=== PATIENT | female | born 1970 | race Caucasian/White ===

== ENCOUNTER 2024-08-26 05:38 | Emergency (ER) | payer OTHER ==
--- OUTSIDE RECORDS SUMMARY | 2024-08-26 05:42 | XMS REPORT | Continuity of Care Document ---
Author Name Unknown Address [address] [facility] [address] [place] [address] [facility] thconnect Address [address] [place] [address] Care Team Providers Care Aerial Sprayer Name Role Phone Jania Bower Primary Care Physician Genie Pandey Attending Clinician Unavail BERTHA Christian Attending Clinician Un available Elizabeth Epstein Attending Clinician Unav Bright Palmer Attending Clinician Unavailable JASON CEE Attending Clinician Unavailable Sam Li Attending Clinician Unavailab Elizabeth Francois Attending Clinician Unavailable Elizabeth Epstein Attending Clinician Unavailable ELIZABETH EPSTEIN Attending Clinician Unavailable Sam Li Attending Clinician Unavailable Charles ISBELL Helena Gabo Attending Clinician [phone] [email or web address] Attending Clinician Unavailyas Perez Attending Clinician Unavail able TAURUS VALDEZ Attending Clinician Unavailable Samuel Quinones Attending Clinician Unavailable Stalin Mckeon Attending Clinician Unavail able MARISEL Attending Clinician Unavailable Jr Springer Attending Clinician UnavailMICHAEL Gregory Attending Clinician Unavailable LITTLE RODRIGUEZ Attending Clinician UnavailSAIRA Zuleta Attending Clinician Unavaila BERTHA Koroma Admitting Clinician Un available Elizabeth Epstein Admitting Clinician Unavailable Sam Li Admitting Clinician Unavailable [id number] Admitting Clinician Unavaila mohit Perez Admitting Clinician Unavail able TAURUS VALDEZ Admitting Clinician Unavailable MARISEL Admitting Clinician Unavailable Payers Payer Name Policy Type Policy Number Effective Date Expirati on Date Source 2 M [id number] [facility] CHOICE (MEDICARE REPLACEMENT HMO) [id number] [facility] MEDICARE COMPLETE (MEDICARE REPLACEMENT HMO) [id number] 2 [id number] [employer] (MEDICARE REPLACEMENT/ADVANTA GE - PPO) [id number] [employer] CHOICE [id number] 2019 00:00:00 Problems Condition Name Condition Details Condition Category Status Onset Date Resolution Date Last Treatment Date Treating Clinician Comments Source Abnormal cervical Papanicola ou smear Abnormal Cervical Papanicola ou Smear Problem Active 01-04 00:00: 00 [facility] Human papillomav irus deoxyribon ucleic acid detected, high risk on cervical specimen Human Papillomav irus Deoxyribon ucleic Acid Detected, High Risk on Cervical Specimen Problem Active 01-04 00:00: 00 [facility] Herpes simplex Herpes Simplex Problem Active 12-13 00:00: 00 [facility] Anxiety Anxiety Problem Active 12-13 00:00: 00 [facility] Depressive disorder Depressive Disorder Problem Active 12-13 00:00: 00 [facility] Migraine Migraine Problem Active 12-13 00:00: 00 [facility] Migraine Problem Active 03-19 00:00: 00 [facility] Environmen maryam allergy Environmen maryam Allergy Problem Active 03-19 00:00: 00 [facility] Allergies, Adverse Reactions, Alerts Allergy Name Allergy Type Status Severity Reaction(s) Onset Date Inactive Date Treating Clinician Comments Source No Known Allergie s NA Active 09-20 07:38: [facility] No Known Allergie s NA Active 09-20 07:38: 43 [facility] No Known Allergie s NA Active 09-07 15:27: 09 [facility] No Known Allergie s NA Active 09-07 15:26: 56 [facility] No Known Allergie s NA Active 09-07 15:23: 45 [facility] No Known Allergie s NA Active 2021-08 00:28: 51 [facility] No Known Allergie s NA Active 2021-08 00:18: 31 [facility] No Known Allergie s NA Active 2021-08 21:00: 35 [facility] No Known Allergie s NA Active 2021-08 20:32: 06 [facility] Penicill ins DA Active U Rash 2021-08 0-18 00:00: 00 [facility] Penicill ins DA Active U Rash 2021-08 0-17 00:00: 00 [facility] Penicill ins DA Active U Rash 8-08 00:00: 00 [facility] Penicill ins DA Active U Rash - 00:00: 00 [facility] PENICILL IN DRUG INGREDI Active Rash 2-24 00:00: 00 [facility] Penicill in Propensi ty to adverse reaction s Active Rash 2- 00:00: 00 [facility] PENICILL INS Allergy to substanc e Active Rash [facility] penicill in Drug Active rash [facility] penicill in Drug Active rash Medical [facility] penicill in Drug Active rash [facility] penicill in Drug Active rash [facility] penicill in Drug Active rash [facility] penicill in Drug Active rash [facility] penicill in Drug Active rash [facility] penicill in Drug Active rash [facility] penicill in Drug Active rash [facility] penicill in Drug Active rash [facility] penicill in Drug Active rash [facility] penicill in Drug Active rash [facility] penicill in Drug Active rash [facility] penicill in Drug Active rash [facility] penicill in Drug Active rash [facility] Social History Social Habit Start Date Stop Date Quantity Comments Source Sexual orientation [facility] Sex assigned at 1970 00:00:00 1970 00:00:00 [facility] Smoking Status Start Date Stop Date Source Tobacco smoking consumption unknown [facility] Never Smoker [facility] Medications Ordered Medication Name Filled Medication Name Start Date Stop Date Current Medication? Ordering Clinician Indication Dosage Frequency Signature (SIG) Comments Components Source ondansetron (ZOFRAN (PF)) injection 4 mg 01-28 06:00: 00 01-28 05:53 :00 No 4mg 4 mg, Slow IV Push, ONCE, 1 dose, On 01/29/24 at 0100, JULITA [facility] ketorolac (TORADOL) injection 30 mg 01-28 05:00: 00 01-28 04:16 :00 No 30mg 30 mg, Slow IV Push, ONCE, 1 dose, On 01/29/24 at 0000, Routine [facility] NaCl 0.9% (NS) bolus infusion 1,000 mL 01-28 04:30: 00 01-28 04:15 :00 No 1000mL at 999 mL/hr, 1,000 mL, IV Infusion, ONCE, 1 dose, [facility] 01/28[facility]24 [facility] 2330[facility] dex[facility] sod phos PF [facility] 10 mg 01-28 04:15: 00 01-28 04:17 :00 No 10mg 10 mg, Oral, ONCE, 1 dose, On 01/28/24 at 2315, 1 mL [facility] diphenhydrA MINE (BENADRYL) injection 25 mg 01-28 04:15: 00 01-28 04:16 :00 No 25mg 25 mg, Slow IV Push, ONCE, 1 dose, On 01/28/24 at 2315, STAT [facility] ondansetron (ZOFRAN-ODT ) disintegrat ing tablet 4 mg 01-28 04:00: 00 01-28 03:26 :00 No 4mg 4 mg, Oral, ONCE, 1 dose, On 01/28/24 at 2300, Routine [facility] metoclopram sivan HCl (REGLAN) injection 10 mg 01-28 03:45: 00 01-28 04:17 :00 No 10mg 10 mg, Slow IV Push, ONCE, 1 dose, On 01/28/24 at 2245, [facility] SUMAtriptan (IMITREX) injection 6 mg 01-28 03:15: 00 01-28 03:26 :00 No 6mg 6 mg, Subcutaneo us, ONCE, 1 dose, On 01/28/24 at 2215, [facility] ondansetron ODT 4 MG TBDP ondansetron ODT 4 MG TBDP 2021-08 21:19: 00 07-10 21:19 :00 No 4mg medication :ondansetr on ODT 4 MG TBDP|dose: 4.0 mg|route:O RAL|freque ncy:ONE TIME [facility] ([facility]) fentaNYL INJ 50 MCG/ 1ML SOSY fentaNYL INJ 50 MCG/ 1ML SOSY 2021-08 21:19: 00 07-10 21:19 :00 No 50ug medication :fentaNYL INJ 50 MCG/ 1ML SOSY|dose: 50.0 ug|route:I NTRAVENOUS |frequency :ONE TIME [facility] ([facility] Ondansetron Hcl (Zofran Odt) 4 Mg ODT 03-28 04:58: 00 No 4mg Every 4 Hours [facility] Hydroxyzine Hcl (Atarax) 25 Mg TAB 02-28 18:33: 00 No 25mg Three Times A Day as needed for Itching [facility] Hydroxyzine Hcl (Atarax) 25 Mg TAB 02-28 18:33: 00 No 25mg Three Times A Day as needed for Itching [facility] Hydroxyzine Hcl (Atarax) 25 Mg TAB 02-28 18:33: 00 03-28 00:00 :00 No 25mg Three Times A Day as needed for Itching [facility] Cam Walking Boot 02-28 18:32: 00 No 1 As Directed for Ankle Fracture [facility] Cam Walking Boot 02-28 18:32: 00 No 1 As Directed for Ankle Fracture [facility] Cam Walking Boot 02-28 18:32: 00 03-28 00:00 :00 No 1 As Directed for Ankle Fracture [facility] valacyclovi r 500 mg tablet TAKE 1 TABLET BY MOUTH DAILY valacyclovi r 500 mg tablet TAKE 1 TABLET BY MOUTH DAILY No valacyclov ir 500 mg tablet TAKE 1 TABLET BY MOUTH DAILY [facility] venlafaxine 50 mg tablet TAKE 1 TABLET BY MOUTH DAILY WITH FOOD venlafaxine 50 mg tablet TAKE 1 TABLET BY MOUTH DAILY WITH FOOD No venlafaxin e 50 mg tablet TAKE 1 TABLET BY MOUTH DAILY WITH FOOD [facility] [place] Thyroid 30 mg tablet TAKE 1 TABLET BY MOUTH DAILY ON AN EMPTY STOMACH [place] Thyroid 30 mg tablet TAKE 1 TABLET BY MOUTH DAILY ON AN EMPTY STOMACH No [place] Thyroid 30 mg tablet TAKE 1 TABLET BY MOUTH DAILY ON AN EMPTY STOMACH [facility] cetirizine 10 mg tablet TAKE 1 TABLET BY MOUTH EVERY 8 HOURS NEEDED FOR ITCHING FOR 15 DAYS cetirizine 10 mg tablet TAKE 1 TABLET BY MOUTH EVERY 8 HOURS NEEDED FOR ITCHING FOR 15 DAYS No cetirizine 10 mg tablet TAKE 1 TABLET BY MOUTH EVERY 8 HOURS NEEDED FOR ITCHING FOR 15 DAYS [facility] methylpredn isolone 4 mg tablets in a dose pack FOLLOW PACKAGE DIRECTIONS methylpredn isolone 4 mg tablets in a dose pack FOLLOW PACKAGE DIRECTIONS No methylpred nisolone 4 mg tablets in a dose pack FOLLOW PACKAGE DIRECTIONS [facility] mupirocin 2 % topical ointment APPLY TOPICALLY TO THE AFFECTED AREA TWICE DAILY mupirocin 2 % topical ointment APPLY TOPICALLY TO THE AFFECTED AREA TWICE DAILY No mupirocin 2 % topical ointment APPLY TOPICALLY TO THE AFFECTED AREA TWICE DAILY [facility] pantoprazol e 40 mg tablet,robinson yed release TAKE 1 TABLET BY MOUTH EVERY DAY 30 MINUTES BEFORE BREAKFAST OR FIRST MEAL. pantoprazol e 40 mg tablet,robinson yed release TAKE 1 TABLET BY MOUTH EVERY DAY 30 MINUTES BEFORE BREAKFAST OR FIRST MEAL. No pantoprazo le 40 mg tablet,del ayed release TAKE 1 TABLET BY MOUTH EVERY DAY 30 MINUTES BEFORE BREAKFAST OR FIRST MEAL. [facility] sodium,pota ssium,mag sulfates 17.5 gram-3.13 gram-1.6 gram oral soln MIX AND DRINK THE FIRST DOSE AT 7PM THE EVENING BEFORE THE PROCEDURE. THEN TAKE SECOND DOSE 4 HOURS BEFORE CHECK IN sodium,pota ssium,mag sulfates 17.5 gram-3.13 gram-1.6 gram oral soln MIX AND DRINK THE FIRST DOSE AT 7PM THE EVENING BEFORE THE PROCEDURE. THEN TAKE SECOND DOSE 4 HOURS BEFORE CHECK IN No sodium,pot assium,mag sulfates 17.5 gram-3.13 gram-1.6 gram oral soln MIX AND DRINK THE FIRST DOSE AT 7PM THE EVENING BEFORE THE PROCEDURE. THEN TAKE SECOND DOSE 4 HOURS BEFORE CHECK IN [facility] Sutab 1.479-0.188 -0.225 gram tablet Sutab 1.479-0.188 -0.225 gram tablet No Sutab 1.479-0.18 8-0.225 gram tablet [facility] venlafaxine 37.5 mg tablet venlafaxine 37.5 mg tablet No venlafaxin e 37.5 mg tablet [facility] eszopiclone 1 mg tablet TAKE 1 TABLET AN HOUR BEFORE BEDTIME eszopiclone 1 mg tablet TAKE 1 TABLET AN HOUR BEFORE BEDTIME No eszopiclon e 1 mg tablet TAKE 1 TABLET AN HOUR BEFORE BEDTIME [facility] gabapentin 300 mg capsule TAKE 1 CAPSULE BY MOUTH THREE TIMES DAILY gabapentin 300 mg capsule TAKE 1 CAPSULE BY MOUTH THREE TIMES DAILY No gabapentin 300 mg capsule TAKE 1 CAPSULE BY MOUTH THREE TIMES DAILY [facility] Lyrica 100 mg capsule Take 1 capsule twice a day by oral route. Lyrica 100 mg capsule Take 1 capsule twice a day by oral route. No 1capsul e(s) BID Lyrica 100 mg capsule Take 1 capsule twice a day by oral route. [facility] Narcan 4 mg/actuatio n nasal spray EMERGENCY ONLY, OVERDOSE ONLY, take nasal route, once, may repeat every 2 minutes until patient responds. Narcan 4 mg/actuatio n nasal spray EMERGENCY ONLY, OVERDOSE ONLY, take nasal route, once, may repeat every 2 minutes until patient responds. No Narcan 4 mg/actuati on nasal spray EMERGENCY ONLY, OVERDOSE ONLY, take nasal route, once, may repeat every 2 minutes until patient responds. [facility] tramadol 50 mg tablet 1 Q8hr PRN tramadol 50 mg tablet 1 Q8hr PRN No tramadol 50 mg tablet 1 Q8hr PRN [facility] trazodone 50 mg tablet Take 1 tablet every day by oral route. trazodone 50 mg tablet Take 1 tablet every day by oral route. No 1 Q1D trazodone 50 mg tablet Take 1 tablet every day by oral route. [facility] Acetaminoph en/Codeine Phosphate (Tylenol #3) 1 Each TAB No 1 Every 6 Hours [facility] Diphenhydra mine Hcl (Benadryl) 25 Mg CAP No 25mg Every 6 Hours as needed for Itching [facility] Ibuprofen (Motrin) 800 Mg TAB No 800mg Tid W ith Meals [facility] Acetaminoph en/Codeine Phosphate (Tylenol #3) 1 Each TAB No 1 Every 6 Hours [facility] Diphenhydra mine Hcl (Benadryl) 25 Mg CAP No 25mg Every 6 Hours as needed for Itching [facility] Ibuprofen (Motrin) 800 Mg TAB No 800mg Tid W ith Meals [facility] estradiol estradiol No estradiol [facility] progesteron e progesteron e No progestero ne [facility] sumatriptan 100 mg tablet TAKE 1 TABLET TWICE DAILY NEEDED. AT LEAST 2 HOURS BETWEEN DOSES. sumatriptan 100 mg tablet TAKE 1 TABLET TWICE DAILY NEEDED. AT LEAST 2 HOURS BETWEEN DOSES. No sumatripta n 100 mg tablet TAKE 1 TABLET TWICE DAILY NEEDED. AT LEAST 2 HOURS BETWEEN DOSES. [facility] testosteron e testosteron e No testostero ne [facility] Acetaminoph en/Codeine Phosphate (Tylenol #3) 1 Each TAB 03-28 00:00 :00 No 1 Every 6 Hours [facility] Diphenhydra mine Hcl (Benadryl) 25 Mg CAP 03-28 00:00 :00 No 25mg Every 6 Hours as needed for Itching [facility] Ibuprofen (Motrin) 800 Mg TAB 03-28 00:00 :00 No 800mg Tid With Meals [facility] Vital Signs Vital Name Observation Time Observation Value Comments S ource Body temperature 2024-01-29 06:00:00 36.61 Kathleen [facility] Respiratory rate 2024-01-29 06:00:00 18 /min [facility] Oxygen saturation in Arterial blood by Pulse oximetry 2024-01-29 06:00:00 96 /min [facility] Systolic blood pressure 2024-01-29 06:00:00 121 mm[Hg] [facility] Diastolic blood pressure 2024-01-29 06:00:00 95 mm[Hg] [facility] Heart rate 2024-01-29 06:00:00 69 /min [facility] Body height 2024-01-29 03:12:00 162.6 cm [facility] Body weight 2024-01-29 03:12:00 73.392 kg [facility] BMI 2024-01-29 03:12:00 27.77 kg/m2 [facility] BMI (Body Mass Index) 2024-01-05 00:00:00 30 kg/m2 [facility] BP Diastolic 2024-01-05 00:00:00 86 mm[Hg] [facility] Body Weight 2024-01-05 00:00:00 169.4 [lb_av] [facility] BP Systolic 2024-01-05 00:00:00 146 mm[Hg] [facility] Height 2024-01-05 00:00:00 63 [in_i] [facility] Height 2023-12-14 00:00:00 63 [in_i] [facility] Body Weight 2023-12-14 00:00:00 169.4 [lb_av] [facility] BP Systolic 2023-12-14 00:00:00 144 mm[Hg] [facility] BMI (Body Mass Index) 2023-12-14 00:00:00 30 kg/m2 [facility] BP Diastolic 2023-12-14 00:00:00 92 mm[Hg] [facility] BP Diastolic 2021-10-07 00:00:00 92 mm[Hg] [facility] Height 2021-10-07 00:00:00 64 [in_i] [facility] BMI (Body Mass Index) 2021-10-07 00:00:00 29.5 kg/m2 [facility] BP Systolic 2021-10-07 00:00:00 142 mm[Hg] [facility] Body Weight 2021-10-07 00:00:00 172 [lb_av] [facility] BP Diastolic 2021-09-30 00:00:00 98 mm[Hg] [facility] Height 2021-09-30 00:00:00 64 [in_i] [facility] BMI (Body Mass Index) 2021-09-30 00:00:00 28.8 kg/m2 [facility] BP Systolic 2021-09-30 00:00:00 154 mm[Hg] [facility] Body Weight 2021-09-30 00:00:00 168 [lb_av] [facility] Height/Length Measured 2021-09-10 13:43:07 163 cm Weight Dosing 2021-09-10 13:43:07 77.11 kg Height/Length Measured 2021-09-10 13:43:06 163 cm Weight Dosing 2021-09-10 13:43:06 77.11 kg Height/Length Measured 2021-09-10 13:43:00 163 cm Weight Dosing 2021-09-10 13:43:00 77.11 kg Height/Length Measured 2021-09-10 13:42:59 163 cm Weight Dosing 2021-09-10 13:42:59 77.11 kg Height/Length Measured 2020-06-19 16:23:09 BP Diastolic 2022-03-28 05:10:00 72 mm[Hg] [facility] BP Systolic 2022-03-28 05:10:00 114 mm[Hg] [facility] Heart Rate 2022-03-28 05:10:00 91 /min [facility] Respiratory rate 2022-03-28 05:10:00 16 /min [facility] Body Temperature 2022-03-28 05:10:00 98.4 [degF] [facility] BP Diastolic 2022-03-28 05:01:00 72 mm[Hg] [facility] BP Systolic 2022-03-28 05:01:00 114 mm[Hg] [facility] Heart Rate 2022-03-28 05:01:00 91 /min [facility] Respiratory rate 2022-03-28 05:01:00 16 /min [facility] Body Temperature 2022-03-28 05:01:00 98.4 [degF] [facility] Heart Rate 2022-03-28 04:59:00 91 /min [facility] Respiratory rate 2022-03-28 04:59:00 16 /min [facility] Body Temperature 2022-03-28 04:59:00 98.4 [degF] [facility] BP Diastolic 2022-03-28 04:59:00 72 mm[Hg] [facility] BP Systolic 2022-03-28 04:59:00 114 mm[Hg] [facility] BP Diastolic 2022-02-28 17:39:00 82 mm[Hg] [facility] BP Systolic 2022-02-28 17:39:00 152 mm[Hg] [facility] Heart Rate 2022-02-28 17:39:00 88 /min [facility] Respiratory rate 2022-02-28 17:39:00 20 /min [facility] Body Temperature 2022-02-28 17:39:00 98.2 [degF] [facility] Respiratory 2020-10-03 11:27:29 No symptoms reported /min Weight 2020-10-03 11:27:29 unchanged Respiratory 2020-09-24 13:43:05 No symptoms reported /min Weight 2020-09-24 13:43:05 unchanged Respiratory 2020-08-13 11:21:57 No symptoms reported /min Weight 2020-08-13 11:21:57 unchanged Respiratory 2020-08-13 08:01:42 No symptoms reported /min Weight 2020-08-13 08:01:42 unchanged Respiratory 2020-08-12 15:42:47 No symptoms reported /min Weight 2020-08-12 15:42:47 unchanged Respiratory 2020-08-12 15:40:07 No symptoms reported /min Weight 2020-08-12 15:40:07 unchanged Respiratory 2020-08-12 15:39:36 No symptoms reported /min Weight 2020-08-12 15:39:36 unchanged Respiratory 2020-08-12 15:38:33 No symptoms reported /min Weight 2020-08-12 15:38:33 unchanged Respiratory 2020-08-12 15:37:31 No symptoms reported /min Weight 2020-08-12 15:37:31 unchanged Procedures Procedure Date / Time Performed Performing Clinicia n Source MAMMO, screening, digital, bilateral 2023-12-14 00:00:00 [facility] Minor level established patient office visit 2022-03-02 00:00:00 [facility] X-ray of ankle, three or more views 2022-03-02 00:00:00 [facility] X-ray of ankle, three or more views 2022-02-28 00:00:00 [facility] X-RAY EXAM OF ANKLE 2022-02-28 00:00:00 [facility] EMERGENCY DEPT VISIT 2022-02-28 00:00:00 [facility] Minor level established patient office visit 2022-02-05 00:00:00 [facility] X-ray of ankle, three or more views 2022-02-05 00:00:[address] [facility] CT, lumbar spine, w/o contrast 2021-10-07 00:00:00 [facility] XR, cervical spine, 2 or 3 view 2021-09-30 00:00:00 [facility] XR, lumbar spine, 2 view 2021-09-30 00:00:00 [facility] XR, thoracic spine, 2 view 2021-09-30 00:00:00 [facility] Procedure on Back 2016-08-22 00:00:00 [facility] Procedure on Back 2014-08-22 00:00:00 [facility] Plan of Care Planned Activity Planned Date Details Comments Source Diagnostic Test Pending 2021-10-07 00:00:00 CMP, serum or plasma [code = CMP, serum or plasma] [facility] Encounters Start Date/Time End Date/Time Encounter Type Admission Type Attending [facility] Care Facility Care Department Encounter ID Source 2023-12-28 09:54[facility] [id number] [facility] 2023-12-05 10:02:01 Outpatient [facility] Genie [facility] [id number] [facility] 2023-10-27 15:16:01 [facility] [id number] [facility] 2022-11-18 16:59:35 Inpatient [facility] S[facility]P [id number] [facility] 2022-11-03 11:37:07 Inpatient SPTP SPTP [id number] [facility] 2022-11-02 16:12:38 Inpatient SPTP SPTP [id number] [facility] 2022-10-26 10:44:43 Inpatient SPTP SPTP [id number] [facility] [place] 2022-09-07 15:32:54 Outpatient 3 BERTHA DOOLEY [facility] [id number] [facility] 2022-05-13 00:00:00 Inpatient Elective Elizabeth Epstein [facility] [id number] [facility] 2022-04-20 08:00:00 Inpatient Elective Bright Banerjee [facility] [id number] [facility] 2022-04-15 00:00:00 Inpatient Elective Elizabeth Epstein [facility] [id number] [facility] 2022-03-22 00:00:00 Inpatient JASON HERRON [id number] [address] [place] [address] 2021-11-11 00:00:00 Inpatient Elective Elizabeth Epstein MCSETXnereida [facility] [id number] [facility] 2021-10-22 09:30:00 Inpatient Elizabeth EpsteinETXnereida [facility] [id number] [facility] 2021-10-19 08:00:00 Inpatient Elective Bright Banerjee [facility] [id number] [facility] 2020-07-22 00:13:00 Inpatient Elective Sam Li [facility] [id number] [facility] 2020-07-21 00:00:00 Inpatient Elective JenSam lynn [facility] [id number] [facility] 2020-06-24 15:23:00 Inpatient Elizabeth Epstein Ryan [facility] ECHO [id number] [facility] 2020-06-18 15:37:00 Inpatient Elizabeth Epstein Ryan [facility] ECHO [id number] [facility] 2020-04-30 08:44:00 Inpatient Elizabeth Epstein Ryan [facility] ECHO [id number] [facility] 2020-04-15 13:30:00 Inpatient [facility] [id number] [address] [place] [address] 2020-03-27 16:27:00 Inpatient Elizabeth Epstein Ryan [facility] ECHO [id number] [facility] 2020-03-26 11:21:00 Inpatient 3 Sam Li [facility] OCP [id number] [facility] 2024-01-28 22:15:00 2024-01-29 01:05:00 Emergency Helena Soto [facility] [id number] [facility] 2024-01-12 00:00:00 2024-01-12 00:00:00 Delfina Jackson, [employer]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 Formerly [facility] - GC_GCBZW_Mariama rai Shoaib* [id number] [facility] 2024-01-05 00:00:00 2024-01-05 00:00:00 LATA Mckenzie: [address], [address], [place] [address] , Ph. [facility] - GC_GCBZW_Mariama rai Shoaib* [id number] [facility] 2023-12-22 00:00:00 2023-12-22 00:00:00 Rocío Kendrick PA: [address], [address], [place] [address] , Ph. [facility] - GC_GCBZW_Mariama rai Shoaib* [id number] [facility] 2023-12-14 00:00:00 2023-12-14 00:00:00 Rocío Kendrick PA: [address], [address], [place] [address] , Ph. Formerly [facility] - GC_GCBZW_Mariama rai Shoaib* [id number] [facility] 2023-12-05 00:00:00 2023-12-05 00:00:00 Outpatient GC_GCBZW_Ka diyala_S [facility] [id number] [facility] 2023-11-08 00:00:00 2023-11-08 00:00:00 Outpatient FOG_Krystian Bal AOSM AOSM [id number] [facility] 2023-11-03 00:00:00 2023-11-03 00:00:00 Outpatient FOG_Krystian Bal AOSM AOSM [id number] [facility] 2022-07-11 02:31:00 2022-07-11 06:17:00 Emergency Department Patient Visit [facility] [id number] 2022-07-10 20:31:00 2022-07-11 00:17:00 Outpatient Encounter 1 TAURUS VALDEZ [facility] [id number] [facility]) 2022-06-08 22:32:00 2022-06-08 22:32:00 Emergency Emergency Samuel Quinones MCSETXm MCSETXm [id number] [facility] 2022-06-08 22:32:00 2022-06-08 22:32:00 Emergency Emergency Joni Samuel MCSETXm MCSETXm [id number] [facility] 2022-06-07 16:41:00 2022-06-07 19:44:00 Emergency Emergency Stalin Mckeon MCSETXm MCSETXm [id number] [facility] 2022-04-29 00:00:00 2022-04-29 00:00:00 Outpatient Oscar Bal AO AO [id number] [facility] 2022-04-12 00:00:00 2022-04-12 00:00:00 Outpatient ZEINAB BAUER [facility] [id number] [facility] 2022-04-11 00:00:00 2022-04-11 00:00:00 Outpatient ZEINAB BAUER [facility] [id number] [facility] 2022-04-07 00:00:00 2022-04-07 00:00:00 Outpatient ZEINAB BAUER [facility] [id number] [facility] 2022-04-05 00:00:00 2022-04-05 00:00:00 Outpatient ZEINAB BAUER [facility] [id number] [facility] 2022-04-04 00:00:00 2022-04-04 00:00:00 Outpatient ZEINAB BAUER [facility] [id number] [facility] 2022-04-01 00:00:00 2022-04-01 00:00:00 Outpatient ZEINAB BAUER [facility] [id number] [facility] 2022-03-29 16:46:00 2022-03-29 16:46:00 Emergency Emergency Jr Springer MCSETXm MCSETXm [id number] [facility] 2022-03-29 16:46:00 2022-03-29 16:46:00 Emergency Emergency Jr Springer MCSETXm MCSETXm [id number] [facility] 2022-03-28 04:31:00 2022-03-28 05:09:00 Departed Emergency Room ER MICHAEL QUINTERO [id number] [facility] 2022-03-02 15:20:00 2022-03-21 00:01:00 Discharged Recurring QUINCY SAFIANORISJASON [id number] [facility] 2022-02-28 17:02:00 2022-02-28 19:06:00 Departed Emergency Room ER LITTLE RODRIGUEZ [facility] [id number] [facility] 2022-02-05 12:55:00 2022-02-18 00:01:00 Discharged Recurring QUINCY JASON CEE [id number] [facility] 2021-12-15 02:01:00 2021-12-15 02:01:00 Outpatient ZEINAB BAUER [facility] [id number] [facility] 2021-11-17 07:43:00 2021-11-17 07:43:00 Outpatient ZEINAB BAUER [facility] [id number] [facility] 2021-10-29 10:35:00 2021-10-29 10:35:00 Outpatient ZEINAB BAUER [facility] [id number] [facility] 2021-10-22 06:29:00 2021-10-22 06:29:00 Outpatient MCSETXm MCSETXm [id number] [facility] 2021-10-22 05:10:00 2021-10-22 05:10:00 Outpatient ZEINAB BAUER [facility] [id number] [facility] 2021-10-07 15:24:00 2021-10-07 15:24:00 Outpatient Elective Elizabeth Epstein MCSETXm MCSETXm [id number] [facility] 2021-10-07 05:23:00 2021-10-07 05:23:00 Outpatient GUERRERO_ELIZABETH BAUER [facility] [id number] [facility] 2021-10-07 00:00:00 2021-10-07 00:00:00 Outpatient Elizabeth Epstein [facility] [id number] 2021-10-07 00:00:00 2021-10-07 00:00:00 Elizabeth Epstein MD: [address],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
[2024-08-26] MEDS ORDERED: ONDANSETRON 4 MG/2 ML VIAL ONE (07:28)
[2024-08-26] MEDS ORDERED: DIAZEPAM 5 MG TABLET ONE (07:29)
[2024-08-26] MEDS ORDERED: HYDROMORPHONE HCL 1 MG/ML INJ ONE (07:29)
[2024-08-26] MEDS ORDERED: KETOROLAC 30 MG/ML INJ ONE (07:29)
--- NOTE | 2024-08-26 07:37 | EDPHYS ---
Physician Documentation [facility] Name: Carolee Hollingsworth Age: 54 yrs Sex: Female : 1970 Arrival Date: 08/26/2024 Time: 05:38 Bed 6 Private MD: ROMELIA Physician Conrad Melissa HPI: 08/26 07:33 This 54 yrs old Female presents to ER via EMS with complaints of Back Pain. [facility] 07:33 The patient presents with pain that is chronic. The symptoms are located in the [facility] thoracic area and lumbar area. Onset: The symptoms/episode began/occurred 2 day(s) ago. The pain does not radiate. Associated signs and symptoms: The patient has no apparent associated signs or symptoms. Modifying factors: The patient symptoms are alleviated by remaining still, the patient symptoms are aggravated by any movement, standing. Severity of symptoms: At their worst the symptoms were mild, moderate, in the emergency department the symptoms are unchanged. The patient has experienced similar episodes in the past, chronically. 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 - Infectious Disease History:: Denies. - Social history:: Smoking status: Patient denies any tobacco usage or history of. - Family history:: not pertinent. ROS: 07:33 Constitutional: Negative for fever, chills, and weight loss, Eyes: Negative for injury, franki pain, redness, and discharge, ENT: Negative for injury, pain, and discharge, Neck: Negative for injury, pain, and swelling, Cardiovascular: Negative for chest pain, palpitations, and edema, Respiratory: Negative for shortness of breath, cough, wheezing, and pleuritic chest pain, Abdomen/GI: Negative for abdominal pain, nausea, vomiting, diarrhea, and constipation, : Negative for injury, bleeding, discharge, and swelling, MS/Extremity: Negative for injury and deformity, Skin: Negative for injury, rash, and discoloration, Neuro: Negative for headache, weakness, numbness, tingling, and seizure, Psych: Negative for depression, anxiety, suicide ideation, homicidal ideation, and hallucinations, Allergy/Immunology: Negative for hives, rash, and allergies, Endocrine: Negative for neck swelling, polydipsia, polyuria, polyphagia, and marked weight changes, Hematologic/Lymphatic: Negative for swollen nodes, abnormal bleeding, and unusual bruising, 07:33 Back: Positive for pain with movement, of the thoracic area and lumbar area, Exam: 07:33 Constitutional: This is a well developed, well nourished patient who is awake, alert, franki and in no acute distress. Head/Face: Normocephalic, atraumatic. Eyes: Pupils equal round and reactive to light, extra-ocular motions intact. Lids and lashes normal. Conjunctiva and sclera are non-icteric and not injected. Cornea within normal limits. Periorbital areas with no swelling, redness, or edema. ENT: Nares patent. No nasal discharge, no septal abnormalities noted. Tympanic membranes are normal and external auditory canals are clear. Oropharynx with no redness, swelling, or masses, exudates, or evidence of obstruction, uvula midline. Mucous membranes moist. Neck: Trachea midline, no thyromegaly or masses palpated, and no cervical lymphadenopathy. Supple, full range of motion without nuchal rigidity, or vertebral point tenderness. No Meningismus. Chest/axilla: Normal chest wall appearance and motion. Nontender with no deformity. No lesions are appreciated. Cardiovascular: Regular rate and rhythm with a normal S1 and S2. No gallops, murmurs, or rubs. Normal PMI, no JVD. No pulse deficits. Respiratory: Lungs have equal breath sounds bilaterally, clear to auscultation and percussion. No rales, rhonchi or wheezes noted. No increased work of breathing, no retractions or nasal flaring. Abdomen/GI: Soft, non-tender, with normal bowel sounds. No distension or tympany. No guarding or rebound. No evidence of tenderness throughout. Skin: Warm, dry with normal turgor. Normal color with no rashes, no lesions, and no evidence of cellulitis. MS/ Extremity: Pulses equal, no cyanosis. Neurovascular intact. Full, normal range of motion., bilateral aka Neuro: Awake and alert, GCS 15, oriented to person, place, time, and situation. Cranial nerves II-XII grossly intact. Motor strength 5/5 in all extremities. Sensory grossly intact. Cerebellar exam normal. Normal gait. 07:33 Back: pain, that is moderate, ROM is painful, normal spinal alignment noted, CVA tenderness, is absent, vertebral tenderness, is not appreciated, muscle spasm, is appreciated in the left low back, left mid back, right mid back and right low back, Vital Signs: 05:41 BP 137 / 74; Pulse 85; Resp 17 S; Temp 97.9(T); Pulse Ox 98% on R/A; Weight 64.41 kg; ha1 Height 5 ft. 2 in. ; Pain 7/10; 05:53 BP 114 / 64; Pulse 92; Resp 17; Temp 97.9; Pulse Ox 99% ; Pain 8/10; bm8 06:52 BP 124 / 65; Pulse 91; Resp 17; Temp 97.9; Pulse Ox 97% ; Pain 8/10; bm8 07:27 BP 149 / 82; Pulse 82; Resp 15; Pulse Ox 99% ; ko1 07:49 BP 121 / 64; Pulse 99; Resp 15; Pulse Ox 97% ; ko1 05:41 Body Mass Index 25.97 (64.41 kg, 157.48 cm) ha1 05:41 Pain Scale: Adult ha1 05:53 Pain Scale: Adult bm8 06:52 Pain Scale: Adult bm8 [place] Coma Score: 05:53 Eye Response: spontaneous(4). Motor Response: obeys commands(6). Verbal Response: bm8 oriented(5). Total: 15. 06:52 Eye Response: spontaneous(4). Motor Response: obeys commands(6). Verbal Response: bm8 oriented(5). Total: 15. MDM: 07:12 Medical Screening Exam initiated franki 07:35 Differential diagnosis: Fracture ruptured disc, Scoliosis spinal injury, sprain, franki Ureterolithiasis vertebral fracture. Data reviewed: vital signs, nurses notes. Consideration of Admission/Observation Escalation of care including admission/observation considered. I considered the following discharge prescriptions or medication management in the emergency department Medications were administered in the Emergency Department. See MAR. Test considered but Not performed: Labs: no labs. Care significantly affected by the following chronic conditions: hypothyroid, pcod. Administered Medications: 07:30 Drug: Diazepam PO 10 mg PO once Route: PO; db 08:00 Follow up: Response: No adverse reaction ko1 07:32 Drug: HYDROmorphone IVP 1 mg IVP once Route: IVP; Site: right wrist; db 07:47 Follow up: Response: No adverse reaction ko1 07:33 Drug: Ondansetron IVP 4 mg IVP once; over 2 minutes Route: IVP; Site: right wrist; db 07:48 Follow up: Response: No adverse reaction ko1 07:34 Drug: Ketorolac IVP 30 mg IVP once Route: IVP; Site: right wrist; db 07:49 Follow up: Response: No adverse reaction ko1 Disposition Summary: 08/26/24 07:37 Discharge Ordered Notes: Location: Home [facility] Problem: new franki Symptoms: have improved franki Condition: Stable franki Diagnosis - Low back pain franki - Muscle spasm of back franki - Other chronic pain franki Followup: franki - With: Private Physician - When: 2 - 3 days - Reason: Recheck today's complaints, Continuance of care, Re-evaluation by your physician Discharge Instructions: - Discharge Summary Sheet franki - Acute Back Pain, Adult franki - Chronic Back Pain franki - Chronic Pain, Adult franki - Musculoskeletal Pain [facility] Forms: - Medication Reconciliation Form franki - Antibiotic Education franki - Prescription Opioid Use franki - Patient Portal Instructions [facility] - Leadership Thank You Letter [facility] Prescriptions: - diclofenac sodium 50 mg Oral tablet, delayed release (enteric coated) - take 1 tablet ORAL route 3 times per day; 21 tablet; Refills: 0, Product [facility] Selection Permitted - methocarbamol 750 mg Oral tablet - take 1 tablet ORAL route 4 times per day; 36 tablet; Refills: 0, Product [facility] Selection Permitted Signatures: Conrad Melissa MD MD cha Ayala, Heidy RN RN ha1 Modesta Grant RN RN db Raiza Mejia RN ko1
--- NOTE | 2024-08-26 07:37 | ER ---
Nurse's Notes [facility] Name: Carolee Hollingsworth Age: 54 yrs Sex: Female : 1970 Arrival Date: 08/26/2024 Time: 05:38 Bed 6 Private MD: Diagnosis: Low back pain;Muscle spasm of back;Other chronic pain Presentation: 08/26 05:41 Chief complaint: Patient states: back pain gave 15 mg ketoroalac IV , spinal stimulator ha1 will be removed on Tuesday. Coronavirus screen: Client denies travel out of the [place] in the last 14 days. Ebola Screen: No symptoms or risks identified at this time. Initial Sepsis Screen: Does the patient meet any 2 criteria? No. Patient's initial sepsis screen is negative. Does the patient have a suspected source of infection? No. Patient's initial sepsis screen is negative. Risk Assessment: Do you want to hurt yourself or someone else? Patient reports no desire to harm self or others. Onset of symptoms was August 26, 2024. 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 - Infectious Disease History:: Denies. - Social history:: Smoking status: Patient denies any tobacco usage or history of. - Family history:: not pertinent. Screenin:49 Abuse screen: Denies threats or abuse. Denies injuries from another. Nutritional ha1 screening: No deficits noted. Tuberculosis screening: No symptoms or risk factors identified. 05:53 [facility] ED Fall Risk Assessment (Adult) History of falling in the last 3 months, bm8 including since admission Yes- physiologic fall (2 pts) Confusion or Disorientation No (0 pts) Intoxicated or Sedated No (0 pts) Impaired Gait Yes (1 pt) Mobility Assist Device Used No (0 pt) Altered Elimination No (0 pt) Score/Fall Risk Level 3 or more points = High Risk Oriented to surroundings, Maintained a safe environment, Educated pt \T\ family on fall prevention, incl call for assistance when getting out of bed, Assessed \T\ reinforced patient's understanding of fall precautions, Hourly rounding (assess needs \T\ fall precautionary measures) done, Used ambulatory aids as needed (educated on \T\ assisted with), Used gait belt as appropriate Implemented a Fall Risk Plan of Care. Assessment: 05:53 Reassessment: Patient appears in no apparent distress at this time. Patient and/or bm8 family updated on plan of care and expected duration. Pain level reassessed. Patient is alert, oriented x 3, equal unlabored respirations, skin warm/dry/pink. General: Appears in no apparent distress. comfortable, Behavior is calm, cooperative, appropriate for age. Pain: Complains of pain in posterior cervical area, left trapezius, right trapezius, thoracic area, lumbar area, left low back and right low back Pain currently is 8 out of 10 on a pain scale. Quality of pain is described as aching, crampy. Neuro: No deficits noted. Level of Consciousness is awake, alert, obeys commands, Oriented to person, place, time, situation, Appropriate for age Tobacco Packer are equal bilaterally Moves all extremities. Full function Facial symmetry appears normal, Pupils are PERRLA, Pupil Size: 4 mm Intact Reports headache in right parietal area. Cardiovascular: Denies chest pain, Capillary refill < 3 seconds in bilateral fingers Patient's skin is warm and dry. Respiratory: Airway is patent Trachea midline Respiratory effort is even, unlabored, Respiratory pattern is regular, symmetrical. GI: No signs and/or symptoms were reported involving the gastrointestinal system. : No signs and/or symptoms were reported regarding the genitourinary system. EENT: No signs and/or symptoms were reported regarding the EENT system. Derm: No signs and/or symptoms reported regarding the dermatologic system. Musculoskeletal: Circulation, motion, and sensation intact. Capillary refill < 3 seconds, in bilateral fingers. toes. Range of motion: intact in all extremities, Reports pain in posterior cervical area, left trapezius, right trapezius, thoracic area, lumbar area, left low back and right low back Pain is 8 out of 10 on a pain scale. 06:52 Reassessment: Patient appears in no apparent distress at this time. No changes from bm8 previously documented assessment. Patient and/or family updated on plan of care and expected duration. Pain level reassessed. Patient is alert, oriented x 3, equal unlabored respirations, skin warm/dry/pink. 07:39 Reassessment: Patient appears in no apparent distress at this time. Patient and/or db family updated on plan of care and expected duration. Pain level reassessed. Patient is alert, oriented x 3, equal unlabored respirations, skin warm/dry/pink. 07:39 Reassessment: DC PENDING MEDICATION NARCOTIC HOLD. db Vital Signs: 05:41 BP 137 / 74; Pulse 85; Resp 17 S; Temp 97.9(T); Pulse Ox 98% on R/A; Weight 64.41 kg; ha1 Height 5 ft. 2 in. ; Pain 7/10; 05:53 BP 114 / 64; Pulse 92; Resp 17; Temp 97.9; Pulse Ox 99% ; Pain 8/10; bm8 06:52 BP 124 / 65; Pulse 91; Resp 17; Temp 97.9; Pulse Ox 97% ; Pain 8/10; bm8 07:27 BP 149 / 82; Pulse 82; Resp 15; Pulse Ox 99% ; ko1 07:49 BP 121 / 64; Pulse 99; Resp 15; Pulse Ox 97% ; ko1 05:41 Body Mass Index 25.97 (64.41 kg, 157.48 cm) ha1 05:41 Pain Scale: Adult ha1 05:53 Pain Scale: Adult bm8 06:52 Pain Scale: Adult bm8 [place] Coma Score: 05:53 Eye Response: spontaneous(4). Motor Response: obeys commands(6). Verbal Response: bm8 oriented(5). Total: 15. 06:52 Eye Response: spontaneous(4). Motor Response: obeys commands(6). Verbal Response: bm8 oriented(5). Total: 15. ED Course: 05:41 Patient arrived in ED. ha1 05:47 Triage completed. ha1 05:53 Jeremiah Bullock, RN is Primary Nurse. bm8 05:53 Patient has correct armband on for positive identification. Bed in low position. Call bm8 light in reach. Side rails up X 1. Client placed on continuous cardiac and pulse oximetry monitoring. NIBP monitoring applied. Pulse ox on. NIBP on. Door closed. Noise minimized. Warm blanket given. Pillow given. Verbal reassurance given. 05:53 No provider procedures requiring assistance completed. Maintain EMS IV. Dressing bm8 intact. Good blood return noted. Site clean \T\ dry. Gauge \T\ site: 20 g Right wrist. Patient maintains SpO2 saturation greater than 95% on room air. 07:00 Patient placed in an exam room, Patient notified of wait time. ko1 07:12 Conrad Melissa MD is Attending Physician. [facility] 07:49 Provided Education on: follow up,meds. ko1 07:49 IV discontinued, intact, bleeding controlled, No redness/swelling at site. Pressure ko1 dressing applied. Administered Medications: 07:30 Drug: Diazepam PO 10 mg PO once Route: PO; db 08:00 Follow up: Response: No adverse reaction ko1 07:32 Drug: HYDROmorphone IVP 1 mg IVP once Route: IVP; Site: right wrist; db 07:47 Follow up: Response: No adverse reaction ko1 07:33 Drug: Ondansetron IVP 4 mg IVP once; over 2 minutes Route: IVP; Site: right wrist; db 07:48 Follow up: Response: No adverse reaction ko1 07:34 Drug: Ketorolac IVP 30 mg IVP once Route: IVP; Site: right wrist; db 07:49 Follow up: Response: No adverse reaction ko1 Medication: 05:53 VIS not applicable for this client. bm8 Outcome: 07:37 Discharge ordered by . [facility] 07:49 Condition: stable ko1 07:49 Discharge instructions given to patient, Instructed on discharge instructions, follow up and referral plans. medication usage, Demonstrated understanding of instructions, follow-up care, medications, Prescriptions given X 2, 08:00 Discharged to home ambulatory, ko1 08:01 Patient left the ED. ko1 Signatures: Conrad Melissa MD MD cha Ayala, Heidy RN RN ha1 Raiza Mejia RN RN ko1 Modesta Grant, AMARI RN Jeremiah Crowe, RN RN bm8
[2024-08-26 09:16] VITALS: BP 121/64; TEMP 97.9; O2SAT 97
== END 2024-08-26 08:01 | disposition home or self-care (01) ==
LOC: ER 05:38
DX: M62.830 Muscle spasm of back (principal); G89.29 Other chronic pain
CPT/HCPCS: 96375; 96374; 99284; J1171; J2405